=== PATIENT | male | born 1980 | race Caucasian/White ===

== ENCOUNTER 2018-04-13 19:02 | Inpatient (IN) ==
[2018-04-13] MEDS ORDERED: Butalbital/APAP/Caff 50/325/40 MG Tablet PO ONE (19:25)
[2018-04-13] MEDS ORDERED: Sod Chloride 0.9% Inj 1,000 ML IV.SIG ONE (19:25)
[2018-04-13] MEDS ORDERED: Ketorolac Inj 30 MG/ML (IVP) Vial IV.PUSH ONE (19:28)
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
[2018-04-13 19:47] LABS: Baso # (Auto) 0.1 th/mm3 (0.0-0.2); Baso % (Auto) 0.9 % (0.0-2.0); Eos # (Auto) 0.3 th/mm3 (0.0-0.4); Eos % (Auto) 3.2 % (0.0-4.0); Hematocrit 39.9 % (39.0-51.0); Lymph # (Auto) 2.1 th/mm3 (1.0-4.8); Lymph % (Auto) 25.4 % (9.0-44.0); Mean Corpuscular HGB Conc 35.1 % (32.0-36.0); Mean Corpuscular Hemoglobin 34.9 pg (27.0-34.0); Mean Corpuscular Volume 99.4 fL (80.0-100.0); Mean Platelet Volume 8.2 fL (7.0-11.0); Mono # (Auto) 0.5 th/mm3 (0.0-0.9); Mono % (Auto) 5.6 % (0.0-8.0); Neut # (Auto) 5.3 th/mm3 (1.8-7.7); Neut % (Auto) 64.9 % (16.0-70.0); Platelet Count 204 th/mm3 (150-450); Red Blood Count 4.02 mil/mm3 (4.50-5.90); Red Cell Distribution Width 12.8 % (11.6-17.2); White Blood Count 8.2 th/mm3 (4.0-11.0)
[2018-04-13 20:13] LABS: Albumin 4.2 g/dL (3.4-5.0); Alkaline Phosphatase 155 U/L (45-117); Anion Gap 27 meq/L (5-15); Aspartate Aminotransferase 48 U/L (15-37); Blood Urea Nitrogen 10 mg/dL (7-18); Calcium 8.1 mg/dL (8.5-10.1); Carbon Dioxide 6.2 meq/L (21.0-32.0); Chloride 94 meq/L (98-107); Glomerular Filtration Rate 71 mL/min (>89); Glucose,Random 437 mg/dL (74-106); Potassium 4.5 meq/L (3.5-5.1); Sodium 127 meq/L (136-145); Total Protein 8.5 g/dL (6.4-8.2)
[2018-04-13 20:14] LABS: Alcohol 89 mg/dL (0-5)
[2018-04-13 20:40] LABS: Alanine Aminotransferase 58 U/L (12-78)
[2018-04-13] MEDS ORDERED: Potassium Chlor 40 mEq Premix 40 MEQ/100 ML PIGGYBACK IV.SIG PRN ×2 (20:47)
[2018-04-13] MEDS ORDERED: Potassium Chlor 20 mEq Premix 20 MEQ/100 ML PIGGYBACK IV.SIG PRN ×5 (20:47)
[2018-04-13] MEDS ORDERED: Sodium Phosphate Inj 15 MMOL in Sodium Chlor 0.9% Inj 100 ML IV.SIG PRN (20:47)
[2018-04-13] MEDS ORDERED: Insulin Regular (For Infusion) 100 UNIT in Sodium Chlor 0.9% Inj 99 ML IV.CONT PRN (20:47)
[2018-04-13 21:03] LABS: VBG Base Excess -16.5 mmol/L (-2-2); VBG Blood Gas Oxygen Content 13.5 Vol % (9.0-17.0); VBG PCO2 25 mmHG (44-48); VBG PH 7.22 (7.360-7.400); VBG PO2 46 mmHG (35-40)
[2018-04-13] MEDS ORDERED: Acetaminophen 325 MG Tablet PO PRN (21:08)
[2018-04-13] MEDS ORDERED: Bisacodyl 10 MG Supp RECTAL PRN (21:08)
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
[2018-04-13] MEDS: Sod Chloride 0.9% Inj 1,000 ML IV.SIG SCH ×2 (21:54→22:02)
[2018-04-13] MEDS: Sod Chloride 0.9% Inj 1,000 ML IV.CONT SCH (21:56)
[2018-04-13] MEDS ORDERED: Haloperidol Inj 5 MG/ML Ampul IV.PUSH PRN (21:58)
[2018-04-13 22:22] LABS: Bilirubin,Urine Negative (Negative); Clarity,Urine Clear (Clear); Color,Urine Straw (Yellw/Straw); Glucose,Urine (UA) 500 or Greater mg/dL (Negative); Leukocyte Esterase,Urine Negative (Negative); Mucus,Urine Few /lpf (Occasional); Nitrite,Urine Negative (Negative); Specific Gravity,Urine 1.026 (1.002-1.035); Squamous Epithelial Cell,Urine <1 /hpf (0-5)
[2018-04-14] MEDS: Dextrose 5%/NaCl 0.9% Inj 1,000 ML IV.CONT SCH ×3 (00:53→06:19)
[2018-04-14 03:28] LABS: Anion Gap 14 meq/L (5-15); Blood Urea Nitrogen 10 mg/dL (7-18); Calcium 7.2 mg/dL (8.5-10.1); Carbon Dioxide 17.9 meq/L (21.0-32.0); Chloride 107 meq/L (98-107); Glomerular Filtration Rate Greater Than 89 mL/min (>89); Glucose,Random 152 mg/dL (74-106); Sodium 139 meq/L (136-145)
[2018-04-14] MEDS: Sod Chloride 0.9% Inj 1,000 ML IV.CONT SCH (03:29)
[2018-04-14 03:36] LABS: Albumin 3.5 g/dL (3.4-5.0); Calcium-Albumin Corrected 7.6 mg/dL (8.5-10.1)
[2018-04-14] MEDS: Potassium Chlor 20 mEq Premix 20 MEQ/100 ML PIGGYBACK IV.SIG PRN ×4 (03:44→10:43)
[2018-04-14] MEDS ORDERED: Chlorhexidine Gluconate 2% 1 Pack (2 Cloths) TOPICAL PRN (04:00)
[2018-04-14] MEDS: Chlorhexidine Gluconate 2% 1 Pack (2 Cloths) TOPICAL SCH (04:50)
[2018-04-14 07:44] LABS: Amphetamine Screen,Urine Neg (Neg); Barbiturate Screen,Urine Neg (Neg); Cannabinoid Screen,Urine Neg (Neg); Cocaine Screen,Urine Neg (Neg); Opiate Screen,Urine Neg (Neg)
[2018-04-14] MEDS: Multivitamin/Minerals Therapeutic Tablet PO SCH (08:05)
[2018-04-14] MEDS: Senna/Docusate Sodium 8.6/50 MG Tablet PO SCH ×2 (08:06→20:21)
[2018-04-14] MEDS: Folic Acid 1 MG Tablet PO SCH (08:06)
[2018-04-14] MEDS ORDERED: Influenza (Quadrivalent) Vaccine 0.5 ML Syringe IM ONE (08:30)
[2018-04-14 10:42] LABS: Baso # (Auto) 0.1 th/mm3 (0.0-0.2); Baso % (Auto) 1.3 % (0.0-2.0); Eos # (Auto) 0.4 th/mm3 (0.0-0.4); Eos % (Auto) 6.5 % (0.0-4.0); Hematocrit 35.6 % (39.0-51.0); Hemoglobin 12.7 gm/dL (13.0-17.0); Lymph % (Auto) 16.1 % (9.0-44.0); Mean Corpuscular HGB Conc 35.6 % (32.0-36.0); Mean Corpuscular Hemoglobin 35.1 pg (27.0-34.0); Mean Corpuscular Volume 98.5 fL (80.0-100.0); Mono # (Auto) 0.4 th/mm3 (0.0-0.9); Mono % (Auto) 6.5 % (0.0-8.0); Neut # (Auto) 4.2 th/mm3 (1.8-7.7); Neut % (Auto) 69.6 % (16.0-70.0); Platelet Count 152 th/mm3 (150-450); Red Blood Count 3.61 mil/mm3 (4.50-5.90); Red Cell Distribution Width 13.2 % (11.6-17.2)
[2018-04-14 10:56] LABS: Calcium 7.7 mg/dL (8.5-10.1); Carbon Dioxide 22.5 meq/L (21.0-32.0); Potassium 4.5 meq/L (3.5-5.1)
[2018-04-14] MEDS ORDERED: Dextrose 50% in Water 50 ML Vial IV.PUSH PRN (11:22)
[2018-04-14] MEDS: Insulin NovoLOG Aspart Correctional Sugar Inj SQ SCH ×3 (12:14→20:24)
[2018-04-14] MEDS ORDERED: Naloxone Inj 0.4 MG/ML Vial IV.PUSH PRN (12:51)
[2018-04-14] MEDS ORDERED: Acetaminophen 325 MG Tablet PO PRN (12:51)
[2018-04-14] MEDS: Ketorolac Inj 30 MG/ML (IVP) Vial IV.PUSH PRN ×2 (13:25→18:47)
[2018-04-14] MEDS ORDERED: Gabapentin 100 MG Capsule PO SCH (14:00)
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
[2018-04-14] MEDS: Gabapentin 400 MG Capsule PO SCH (20:23)
[2018-04-15] MEDS: LORazepam 1 MG Tablet PO PRN ×3 (00:36→08:09)
[2018-04-15] MEDS: Chlorhexidine Gluconate 2% 1 Pack (2 Cloths) TOPICAL SCH (04:33)
[2018-04-15] MEDS: Gabapentin 400 MG Capsule PO SCH (08:08)
[2018-04-15] MEDS: Insulin NovoLOG Aspart Correctional Sugar Inj SQ SCH ×2 (08:08→12:28)
[2018-04-15] MEDS: Folic Acid 1 MG Tablet PO SCH (08:08)
[2018-04-15] MEDS: Multivitamin/Minerals Therapeutic Tablet PO SCH (08:09)
[2018-04-15] MEDS: Senna/Docusate Sodium 8.6/50 MG Tablet PO SCH (08:10)
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
== END 2018-04-15 12:42 | disposition home or self-care (01) ==
LOC: NEPD 19:02 → NEDA 21:09 → HIMC 22:30
PROVIDERS: ADMIT Family Medicine; ATTEND Family Medicine
DX: G40.909 Epilepsy, unspecified, not intractable, without status epilepticus; Z79.4 Long term (current) use of insulin; Z91.19 Patient's noncompliance with other medical treatment and regimen; E10.40 Type 1 diabetes mellitus with diabetic neuropathy, unspecified; F10.10 Alcohol abuse, uncomplicated; F17.210 Nicotine dependence, cigarettes, uncomplicated; E10.10 Type 1 diabetes mellitus with ketoacidosis without coma